=== PATIENT | female | born 2005 | race Caucasian/White ===

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

== ENCOUNTER → 2024-01-26 | Outpatient (REF) ==
[~2024-01-26] MED LIST changes: +LEVOTAB10; +MONT10TA97; +ZOLO100T PO
== END ==
LOC: M EMP 09:05
PROVIDERS: ATTEND Family Medicine
DX: Z11.52 Encounter for screening for COVID-19 (principal)

== ENCOUNTER 2024-07-03 13:42 | Emergency (ER) | payer OTHER ==
[~2024-07-03] VITALS: Ht 154.9 cm; Wt 45.9 kg
[2024-07-03 14:41] LABS: KETONE, URINE AUTO RFX NEGATIVE (NEGATIVE); LEUKOCYTE ESTERASE UR AUTO RFX NEGATIVE (NEGATIVE); NITRITE, URINE AUTO RFX NEGATIVE (NEGATIVE); RBC, URINE AUTO RFX 1 /HPF (0-3); SQUAM EPITHELIAL CELL UR AURFX 9 /HPF (0-6); WBC, URINE AUTO RFX 0 /HPF (0-3)
[2024-07-03 19:43] LABS: BASO # 0.1 10^3/uL (0.0-0.2); BASO % 0.7 % (0.0-1.0); EOS # 0.3 10^3/uL (0.0-0.5); EOS % 2.5 % (0.0-3.0); HEMATOCRIT 41.8 % (36.0-47.0); HEMOGLOBIN 14.1 g/dl (12.0-15.5); LYMPH # 3.6 10^3/uL (1.5-5.0); LYMPH % 36.9 % (24.0-44.0); MEAN CORPUSCULAR HEMOGLOBIN 28.8 pg (27.0-33.0); MEAN CORPUSCULAR HGB CONC 33.7 g/dl (32.0-36.5); MEAN CORPUSCULAR VOLUME 85.5 fl (80.0-96.0); MONO # 0.8 10^3/uL (0.0-0.8); MONO % 7.9 % (2.0-8.0); NEUTROPHILS # 5.1 10^3/uL (1.5-8.5); NEUTROPHILS % 51.9 % (36.0-66.0); PLATELET COUNT, AUTOMATED 362 10^3/uL (150-450); RED BLOOD COUNT 4.89 10^6/uL (4.00-5.40); WHITE BLOOD COUNT 9.8 10^3/uL (4.0-10.0)
[2024-07-03] MEDS: KETOROLAC 30 MG/ML 1ML VIAL IV ONE (19:51)
[2024-07-03 20:07] LABS: LIPASE 27 U/L (12-53)
[2024-07-03 20:09] LABS: ALBUMIN 4.4 G/DL (3.2-5.2); ALKALINE PHOSPHATASE 97 U/L (35-104); ALT/SGPT 10 U/L (7.0-40); AST/SGOT 19 U/L (<34); BILIRUBIN,DIRECT 0.1 MG/DL (<0.4); BILIRUBIN,TOTAL 0.6 MG/DL (0.3-1.2); BLOOD UREA NITROGEN 8 MG/DL (9-23); CALCIUM LEVEL 9.7 MG/DL (8.5-10.1); CARBON DIOXIDE LEVEL 25 MMOL/L (20-31); CHLORIDE LEVEL 108 MMOL/L (98-107); CREATININE FOR GFR 0.55 MG/DL (0.55-1.30); GLUCOSE, FASTING 88 MG/DL (60-100); POTASSIUM SERUM 4.2 MMOL/L (3.5-5.1); SODIUM LEVEL 143 MMOL/L (136-145); TOTAL PROTEIN 7.9 G/DL (5.7-8.2)
[2024-07-03 20:36] LABS: Trichomonas vaginalis (AMP) NOT DETECTED (NEGATIVE)
[2024-07-03 21:00] LABS: GC DNA AMPLIFICATION NEGATIVE (NEGATIVE)
[2024-07-03] MEDS: DOXYCYCLINE HYCLATE 100MG TABLET PO ONE (21:31)
[2024-07-03] MEDS ORDERED: DOXY100T PO (21:51)
[2024-07-03 22:02] VITALS: BP 122/68; TEMP 98; O2SAT 99
[2024-07-04] MEDS ORDERED: DOXY-441 PO (20:44)
== END 2024-07-03 22:03 | disposition home or self-care (01) ==
LOC: M ED 13:42
DX: A74.9 Chlamydial infection, unspecified (principal); F90.9 Attention-deficit hyperactivity disorder, unspecified type; F41.9 Anxiety disorder, unspecified; Z88.1 Allergy status to other antibiotic agents; Z88.2 Allergy status to sulfonamides; Z79.2 Long term (current) use of antibiotics; Z79.899 Other long term (current) drug therapy
CPT/HCPCS: 36415; 76830; 76856; 80048; 80076; 81001; 83690; 84702; 85025; 86850; 86900; 86901; 87661; 87810; 87850; 93976; 96374; 99284; J1885

== ENCOUNTER 2025-01-07 10:07 | Emergency (ER) | payer OTHER ==
[~2025-01-07] VITALS: Ht 154.9 cm; Wt 49.5 kg
[~2025-01-07 10:07] MED LIST changes: +DOXY-441 PO; +DOXY100T PO
[2025-01-07 12:57] LABS: URINE PREG TEST NEGATIVE (NEGATIVE)
[2025-01-07 12:59] LABS: KETONE, URINE AUTO RFX NEGATIVE (NEGATIVE); LEUKOCYTE ESTERASE UR AUTO RFX NEGATIVE (NEGATIVE); MUCUS, URINE RFX SMALL (NEGATIVE); NITRITE, URINE AUTO RFX NEGATIVE (NEGATIVE); RBC, URINE AUTO RFX 0 /HPF (0-3); SQUAM EPITHELIAL CELL UR AURFX 12 /HPF (0-6); WBC, URINE AUTO RFX 8 /HPF (0-3)
[2025-01-07] MEDS: IBUPROFEN 600 MG TAB PO ONE (13:57)
[2025-01-07 14:00] LABS: Trichomonas vaginalis (AMP) NOT DETECTED (NEGATIVE)
[2025-01-07 14:24] LABS: GC DNA AMPLIFICATION NEGATIVE (NEGATIVE)
[2025-01-07 15:06] VITALS: BP 107/72; TEMP 98; O2SAT 99
== END 2025-01-07 15:09 | disposition home or self-care (01) ==
LOC: M ED 10:07
DX: M54.50 Low back pain, unspecified (principal); F17.210 Nicotine dependence, cigarettes, uncomplicated; F12.10 Cannabis abuse, uncomplicated

== ENCOUNTER 2025-06-09 12:33 | Emergency (ER) | payer OTHER ==
[~2025-06-09] VITALS: Ht 154.9 cm; Wt 49.1 kg
[2025-06-09 14:26] VITALS: BP 112/59; TEMP 97.2; O2SAT 100
== END 2025-06-09 14:29 | disposition home or self-care (01) ==
LOC: M ED 13:35
DX: F43.0 Acute stress reaction (principal); F60.3 Borderline personality disorder; F32.A Depression, unspecified; F17.290 Nicotine dependence, other tobacco product, uncomplicated; F12.10 Cannabis abuse, uncomplicated; Z88.1 Allergy status to other antibiotic agents; Z88.2 Allergy status to sulfonamides; Z79.2 Long term (current) use of antibiotics; Z79.899 Other long term (current) drug therapy